=== PATIENT | male | born 1945 | race Caucasian/White ===

== ENCOUNTER 2016-06-21 18:09 | Inpatient (IN) | payer MEDICARE ==
[2016-06-21] MEDS ORDERED: ONDANSETRON HCL 4 MG/2 ML VIAL IV ONE (18:18)
[2016-06-21] MEDS ORDERED: NS 1,000 ML IV ONE (18:18)
--- NOTE | 2016-06-21 18:21 | EDPRACDOC ---
- History of Present Illness HPI: MD NOTE SEEN AND EXAMINED; COUGH AND SHOB; LUNGS CLEAR; PT HYPOXIC. CTA CHEST ADDED. CULTURES AND ABX STARTED. <Flex Cage - Last Filed: 06/21/16 19:44> - General Information Information Source: Patient, Family Mode Of Arrival: Car - History of Present Illness Onset: 4 DAYS HPI: PT STATES "RESPIRATORY INFECTION" X 4 DAYS, COMPLAINS OF NON-PROD COUGH, SOBR, "A LITTLE PAIN AROUND MY HEART", STATES TODAY BEGAN HAVING N/V, STATES VOMITED TNTC, UNABLE TO TOLERATE ANY PO INTAKE, NO FEVER OR CHILLS, NO DIARRHEA. Shortness of Breath: Moderate Relevant History: Reports: None Cough: Reports: Non-productive Rhinorrhea: Reports: Clear Ear Symptoms: Reports: None SOB Worsens with: Reports: Nothing SOB Improves with: Reports: Nothing Associated Signs and symptoms: Reports: Cough, Nasal Symptoms, Nausea, Vomiting , Myalgia <Hiro Oscar - Last Filed: 06/21/16 21:17> - General Information Chief Complaint: Dyspnea/Resp distress Stated Complaint: SHORT OF BREATH Time Seen by Provider: 06/21/16 18:15 Home Medications: Home Medications Omeprazole 20 mg PO DAILY 06/29/12 Tamsulosin HCl [Flomax] 0.4 mg PO QHS 06/29/12 Aspirin (Enteric Coated) [Ecotrin] 81 mg PO DAILY 11/13/15 Acetaminophen [Tylenol] 650 mg PO Q4-6H PRN 06/21/16 Guaifenesin [Mucinex] 600 mg PO BID PRN 06/21/16 Losartan/Hydrochlorothiazide [Losartan-Hctz 100-12.5 mg Tab] 1 tab PO DAILY 11/28 Allergies/Adverse Reactions: Allergies Allergy/AdvReac Type Severity Reaction Status Date / Time No Known Allergies Allergy Verified 11/13/15 15:19 ED Past Medical History - History Reviewed Yes Nurses notes reviewed and agree except as marked - Patient Medical History Cardiac History: Reports: Hypertension, Hypercholesterolemia GI/ History: Reports: Gastroesophageal Reflux 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 negative: Discharge Respiratory: Cough, Shortness of Breath. negative: Wheezing Cardiovascular: Chest Pain. negative: Palpitations Gastrointestinal: Nausea, Vomiting. negative: Diarrhea, Pain Genitourinary: negative: Dysuria, Frequency Neurological: negative: Dizziness, Headache, Numbness, Weakness Musculoskeletal: No Symptoms Reported Integumentary: No Symptoms Reported <Hiro Oscar - Last Filed: 06/21/16 21:17> - Physical Exam Last recorded Vital Signs: Last Vital Signs Temp 98.9 F 06/21/16 18:11 Pulse 77 06/21/16 19:31 Resp 24 06/21/16 19:31 BP 146/76 06/21/16 19:31 Pulse Ox 91 06/21/16 19:31 Oxygen Pulse Oxygen Saturation 91 O2 Device Room Air Oxygen Flow Rate Fraction of Inspired Oxygen ( FIO2) <Flex Cage - Last Filed: 06/21/16 19:44> - Physical Exam Constitutional: Alert (Awake), No apparent distress Oriented to: Time, Person, Place Last recorded Vital Signs: Last Vital Signs Temp 98.9 F 06/21/16 18:11 Pulse 83 06/21/16 18:11 Resp 20 06/21/16 18:11 BP 150/83 06/21/16 18:11 Pulse Ox 98 06/21/16 18:11 Oxygen Pulse Oxygen Saturation 98 O2 Device Room Air Oxygen Flow Rate Fraction of Inspired Oxygen ( FIO2) - HEENT Head: Normal ( normocephalic) Eye Exam: Normal (PERRL, EOMI, Sclera white) Oropharynx: Normal (Pharynx:Moist without exudate,Gums-no swelling) Tympanic Membrane: Normal ENT EAC: Normal TMJ: Normal Nose: No Symptoms Reported (septum midline) Neck: Normal (FROM, trachea at midline) - Respiratory/Cardiovascular Respiratory: Normal - CTA (BBS clear to auscultation without adventitious sounds ) Cardiovascular: Normal (RRR without murmur, gallop or rub) - GI Auscultation: Normal (NABS) Palpation: Normal (Soft,No rebound or guarding, non distended) Tenderness: Non tender Melendez's Sign: Negative - Musculoskeletal Back: Normal (Non-Tender) Extremities: Normal (Normal tone, Pulses 2+ No cyanosis or edema, FROM) - Integumentary Skin: Normal, Warm, Dry Lymphatics: Normal (no adenopathy) - Neurologic Memory Impaired: Normal Motor Function: Normal (Normal tone, Pulses 2+ No cyanosis or edema, FROM) Cranial Nerve: Normal (CN II-X11 intact sensation, strength 5/5) Cerebellar: Normal Mood Description: Normal Perception: Normal <Hiro Oscar - Last Filed: 06/21/16 21:17> ED SOB MDM - Results Result Diagrams: 06/21/16 18:45 06/21/16 18:45 Results: WBC 7.5 xk/uL (3.8-10.8) 06/21/16 18:45 RBC 5.49 xM/uL (4.70-6.10) 06/21/16 18:45 Hgb 16.3 g/dL (14.0-18.0) 06/21/16 18:45 Hct 47.4 % (42-52) 06/21/16 18:45 MCV 86 fL (80-94) 06/21/16 18:45 MCH 29.7 pg (27-32) 06/21/16 18:45 MCHC 34.4 g/dl (33-36) 06/21/16 18:45 RDW 12.8 % (11.5-14.5) 06/21/16 18:45 Plt Count 151 xk/uL (130-400) 06/21/16 18:45 MPV 9.8 fL (7.4-10.4) 06/21/16 18:45 Neut % (Auto) 81.2 % (45-76) H 06/21/16 18:45 Lymph % (Auto) 7.6 % (17-44) L 06/21/16 18:45 [place] % (Auto) 10.0 % (3-10) 06/21/16 18:45 Eos % (Auto) 0.3 % (0-5) 06/21/16 18:45 Baso % (Auto) 0.9 % (0-2) 06/21/16 18:45 Absolute Neuts (auto) 6.08 xk/uL (1.7-8.2) 06/21/16 18:45 Absolute Lymphs (auto) 0.53 xk/uL (0.65-4.75) L 06/21/16 18:45 PT 11.5 SEC (9.2-11.2) H 06/21/16 18:45 INR 1.1 06/21/16 18:45 APTT 25.9 SEC (22-35) 06/21/16 18:45 Puncture Site Left radial 06/21/16 19:30 pH 7.450 pH UNITS (7.35-7.45) 06/21/16 19:30 pCO2 39.0 mmHg (35-45) 06/21/16 19:30 pO2 55.0 mmHg (80-100) L 06/21/16 19:30 HCO3 27.1 MMOL/L (22-26) H 06/21/16 19:30 Total CO2 28.3 MMOL/L (23-27) H 06/21/16 19:30 Base Excess 3.0 (+/- 2) H 06/21/16 19:30 FiO2 % 21% 06/21/16 19:30 Specimen Drawn By Soteroham 06/21/16 19:30 Sodium 136 mEq/L (137-146) L 06/21/16 18:45 Potassium 3.6 mEq/L (3.5-5.1) 06/21/16 18:45 Chloride 99 mEq/L (98-107) 06/21/16 18:45 Carbon Dioxide 25 mMOL/L (22-33) 06/21/16 18:45 Anion Gap 16 mEq/L (8-16) 06/21/16 18:45 BUN 13 MG/DL (9-20) 06/21/16 18:45 Creatinine 0.90 MG/DL (0.66-1.25) 06/21/16 18:45 Estimated GFR (MDRD) > 60 mL/min (>=60) 06/21/16 18:45 Glucose 113 mg/dL (70-99) H 06/21/16 18:45 Calculated Osmolality 263 MOs/Kg (270-290) L 06/21/16 18:45 Calcium 9.5 MG/DL (8.4-10.2) 06/21/16 18:45 Total Bilirubin 0.9 MG/DL (0.2-1.3) 06/21/16 18:45 AST 19 IU/L (17-59) 06/21/16 18:45 ALT 29 IU/L (21-72) 06/21/16 18:45 Alkaline Phosphatase 90 IU/L (50-160) 06/21/16 18:45 Troponin I < 0.01 ng/mL (<.04) 06/21/16 18:45 Total Protein 7.3 G/DL (6.3-8.2) 06/21/16 18:45 Albumin 4.3 G/DL (3.5-5.0) 06/21/16 18:45 Lipase 39 U/L (23-300) 06/21/16 18:45 Lab Results 06/21/16 06/21/16 06/21/16 19:30 18:45 18:45 WBC 7.5 RBC 5.49 Hgb 16.3 Hct 47.4 MCV 86 MCH 29.7 MCHC 34.4 RDW 12.8 Plt Count 151 MPV 9.8 Neut % (Auto) 81.2 H Lymph % (Auto) 7.6 L [place] % (Auto) 10.0 Eos % (Auto) 0.3 Baso % (Auto) 0.9 Absolute Neuts (auto) 6.08 Absolute Lymphs (auto) 0.53 L PT 11.5 H INR 1.1 APTT 25.9 Puncture Site Left radial pH 7.450 pCO2 39.0 pO2 55.0 L HCO3 27.1 H Total CO2 28.3 H Base Excess 3.0 H FiO2 % 21% Specimen Drawn By Alhham Sodium Potassium Chloride Carbon Dioxide Anion Gap BUN Creatinine Estimated GFR (MDRD) Glucose Calculated Osmolality Calcium Total Bilirubin AST ALT Alkaline Phosphatase Troponin I Total Protein Albumin Lipase 06/21/16 18:45 WBC RBC Hgb Hct MCV MCH MCHC RDW Plt Count MPV Neut % (Auto) Lymph % (Auto) [place] % (Auto) Eos % (Auto) Baso % (Auto) Absolute Neuts (auto) Absolute Lymphs (auto) PT INR APTT Puncture Site pH pCO2 pO2 HCO3 Total CO2 Base Excess FiO2 % Specimen Drawn By Sodium 136 L Potassium 3.6 Chloride 99 Carbon Dioxide 25 Anion Gap 16 BUN 13 Creatinine 0.90 Estimated GFR (MDRD) > 60 Glucose 113 H Calculated Osmolality 263 L Calcium 9.5 Total Bilirubin 0.9 AST 19 ALT 29 Alkaline Phosphatase 90 Troponin I < 0.01 Total Protein 7.3 Albumin 4.3 Lipase 39 <Flex Cage - Last Filed: 06/21/16 19:44> - Differential Diagnosis Differential Diagnosis: Heart Failure, Pulmonary Embolus, Pnuemonia, Pneumothorax - Re-evaluation Re-evaluation 1 Re-evaluation Time: 19:16 (FEELS BETTER, NAUSEA RESOLVED, STATES PAIN IN HIS CHEST IS "CONGESTION", STATES HAS BEEN OFF/ON FOR SEVERAL DAYS, LAST STRESS TEST "YEARS AGO") Re-evaluation 2 Re-evaluation Time: 21:09 (FEELS BETTER) - Results Result Diagrams: 06/21/16 18:45 06/21/16 18:45 - EKG EKG #1 EKG Time: 18:23 -: Yes EKG interpreted by me Rate: bpm: 74 [place]: Normal Rhythm: NSR Block: None Hypertrophy: None ST: Nonsp Comparison: 11/13/15 (NEW T-WAVE INVERSION I AND AVL) - Diagnostic Imaging CXR Image interpreted by: Radiologist Diagnostic Imaging Comments: PORTABLE CHEST 1 VIEW COMPARISON: November 13, 2015 FINDINGS: There is no edema or consolidation. The heart size and pulmonary vascularity are normal. No adenopathy. No bone lesions. No pneumothorax. IMPRESSION: No edema or consolidation CTA CHEST Image interpreted by: Radiologist Diagnostic Imaging Comments: CT ANGIOGRAPHY CHEST WITH CONTRAST TECHNIQUE: Multidetector CT imaging of the chest was performed using the standard protocol during bolus administration of intravenous contrast. Multiplanar CT image reconstructions and MIPs were obtained to evaluate the vascular anatomy. CONTRAST: Isovue 370, 80 mL. COMPARISON: Chest radiograph earlier today. FINDINGS: The quality of the study is fair. There is respiratory motion. Mediastinum: No filling defects are noted within the pulmonary arterial tree to suggest pulmonary emboli. Heart size is normal. No pericardial fluid, thickening or calcification. No acute abnormality of the thoracic aorta or other great vessels of the mediastinum. Azygos vein. No pathologically enlarged mediastinal or hilar lymph nodes. The esophagus is normal in appearance. Lungs/Pleura: No consolidative airspace disease. No pleural effusions. No suspicious appearing pulmonary nodules or masses. Large bulla is seen along the LEFT heart border. Upper Abdomen: Visualized portions of the upper abdomen are unremarkable. Musculoskeletal: No aggressive appearing lytic or blastic lesions are noted in the visualized portions of the skeleton. Review of the MIP images confirms the above findings. IMPRESSION: Respiratory degradation. Overall fair quality study. No large central pulmonary emboli are observed. No acute consolidative airspace disease. - Additional Information Additional Information: DISCUSSED WITH DR CAGE, WILL DISCUSS WITH THE HOSPITALIST <Hiro Oscar - Last Filed: 06/21/16 21:17> <Flex Cage - Last Filed: 06/21/16 19:44> - Departure Disposition: Admit IP To This Hospital Decision to Admit Time: 21:14 Decision to admit date: 06/21/16 Decision to admit: from ED - Physician Consulted Hospitalist Time Called: 21:14 Provider Called: Ravindra Ryan Time Player Piano Technician Returned Call: 21:16 (WILL SEE IN ED) <Hiro Oscar - Last Filed: 06/21/16 21:17> - Departure Final Diagnosis: Acute bronchopneumonia, Hypoxia Chest pain Qualifiers: Chest pain type: unspecified Qualified Code(s): R07.9 - Chest pain, unspecified Instructions: Chest Pain (ED), Chest Wall Pain (ED) Referrals: None,No Provider [NonStaff] - One Week Prescriptions: No Action Tamsulosin HCl [Flomax] 0.4 mg PO QHS Omeprazole 20 mg PO DAILY Aspirin (Enteric Coated) [Ecotrin] 81 mg PO DAILY Guaifenesin [Mucinex] 600 mg PO BID PRN PRN Reason: Congestion Losartan/Hydrochlorothiazide [Losartan-Hctz 100-12.5 mg Tab] 1 tab PO DAILY Acetaminophen [Tylenol] 650 mg PO Q4-6H PRN PRN Reason: Pain
[2016-06-21 19:01] LABS: AUTOMATED BASOPHIL 0.9 % (0-2); AUTOMATED EOSINOPHIL 0.3 % (0-5); AUTOMATED LYMPH 7.6 % (17-44); AUTOMATED NEUTROPHIL 81.2 % (45-76); MPV 9.8 fL (7.4-10.4)
[2016-06-21 19:10] LABS: BLOOD UREA NITROGEN 13 MG/DL (9-20); CALCIUM 9.5 MG/DL (8.4-10.2); CALCULATED OSMOLALITY 263 MOs/Kg (270-290); CHLORIDE 99 mEq/L (98-107); GLUCOSE 113 mg/dL (70-99); PARTIAL THROMB. TIME 25.9 SEC (22-35); PT-INR 1.1; SODIUM LEVEL 136 mEq/L (137-146); TOTAL PROTEIN 7.3 G/DL (6.3-8.2)
--- NOTE | 2016-06-21 19:10 | DIRPT ---
CLINICAL DATA: Shortness of breath and chest pain EXAM: PORTABLE CHEST 1 VIEW COMPARISON: November 13, 2015 FINDINGS: There is no edema or consolidation. The heart size and pulmonary vascularity are normal. No adenopathy. No bone lesions. No pneumothorax. IMPRESSION: No edema or consolidation Electronically Signed By: Hector Bartholomew III, M.D. On: 06/21/2016 19:08
[2016-06-21 19:37] LABS: ALLEN'S TEST PASS; TCO2 28.3 MMOL/L (23-27)
[2016-06-21 19:39] LABS: ABG Draw Site Left Radial
[2016-06-21] MEDS ORDERED: CEFTRIAXONE 2 GM in D5W 100 ML IV ONE (19:43)
[2016-06-21] MEDS ORDERED: AZITHROMYCIN 500 MG in D5W 250 ML IV ONE (19:43)
[2016-06-21 19:45] LABS: LEUKOCYTES/URINE NEG (NEGATIVE); NITRITE/URINE NEG (NEGATIVE); URINE OCCULT BLOOD 1+ (NEG/TRACE); WBC/URINE 0-2 (0-2)
[2016-06-21] MEDS ORDERED: Pharmacy Review for Metformin - IV Contrast Given SCH (20:00)
--- NOTE | 2016-06-21 21:01 | DIRPT ---
CLINICAL DATA: Shortness of breath, cough and sneezing for 4 days. EXAM: CT ANGIOGRAPHY CHEST WITH CONTRAST TECHNIQUE: Multidetector CT imaging of the chest was performed using the standard protocol during bolus administration of intravenous contrast. Multiplanar CT image reconstructions and MIPs were obtained to evaluate the vascular anatomy. CONTRAST: Isovue 370, 80 mL. COMPARISON: Chest radiograph earlier today. FINDINGS: The quality of the study is fair. There is respiratory motion. Mediastinum: No filling defects are noted within the pulmonary arterial tree to suggest pulmonary emboli. Heart size is normal. No pericardial fluid, thickening or calcification. No acute abnormality of the thoracic aorta or other great vessels of the mediastinum. Azygos vein. No pathologically enlarged mediastinal or hilar lymph nodes. The esophagus is normal in appearance. Lungs/Pleura: No consolidative airspace disease. No pleural effusions. No suspicious appearing pulmonary nodules or masses. Large bulla is seen along the LEFT heart border. Upper Abdomen: Visualized portions of the upper abdomen are unremarkable. Musculoskeletal: No aggressive appearing lytic or blastic lesions are noted in the visualized portions of the skeleton. Review of the MIP images confirms the above findings. IMPRESSION: Respiratory degradation. Overall fair quality study. No large central pulmonary emboli are observed. No acute consolidative airspace disease. Electronically Signed By: Vin Ellis M.D. On: 06/21/2016 20:58
[2016-06-21] MEDS ORDERED: ACETAMINOPHEN 325 MG/TAB TABLET PO PRN (21:18)
[2016-06-21] MEDS ORDERED: BISACODYL 10 MG SUPP PR PRN (21:18)
[2016-06-21] MEDS ORDERED: SENNA CONCENTRATE TAB PO PRN (21:18)
[2016-06-21] MEDS ORDERED: TUSSIONEX 5 ML ORAL SYRINGE PO PRN (21:18)
[2016-06-21] MEDS ORDERED: PROMETHAZINE 25 MG/ML VIAL IV PRN (21:18)
[2016-06-21] MEDS ORDERED: BENZONATATE 100 MG PERLES PO PRN (21:18)
[2016-06-21] MEDS ORDERED: OXYCODONE HCL 5 MG TABLET PO PRN (21:18)
[2016-06-21] MEDS ORDERED: ACETAMINOPHEN 325 MG SUPP PR PRN (21:18)
[2016-06-21] MEDS ORDERED: METOCLOPRAMIDE 10 MG/2 ML VIAL IV PRN (21:23)
--- NOTE | 2016-06-21 21:25 | HISTPHYS ---
- Chief Complaint Ill for 3 days worsening cough short of breath - History of Present Illness Patient very pleasant 71-year-old white male non-smoker who comes in the emergency room today complaining of increased shortness breath nonproductive cough over the past 2 weeks significantly worse over the past 3 days and became diaphoretic today with worsening headache coughing up clear material. He also complains of nausea vomiting unable to eat today. 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) Systemic History: Denies: Cancer Neurological History: Reports: No Significant History Psychological History: Reports: No Significant History - Medictions/Allergies Allergies No Known Allergies Allergy (Verified 11/13/15 15:19) Current Medication List: Reviewed Home Medications Omeprazole 20 mg PO DAILY 06/29/12 Tamsulosin HCl [Flomax] 0.4 mg PO QHS 06/29/12 Aspirin (Enteric Coated) [Ecotrin] 81 mg PO DAILY 11/13/15 Acetaminophen [Tylenol] 650 mg PO Q4-6H PRN 06/21/16 Guaifenesin [Mucinex] 600 mg PO BID PRN 06/21/16 Losartan/Hydrochlorothiazide [Losartan-Hctz 100-12.5 mg Tab] 1 tab PO DAILY 11/28 - Family History Reports: Hypertension, Stroke (Father with cerebral hemorrhage age 65), Cardiac Disorders (Mom with PR age 7) - Social History Lives: with Spouse Smoking Status: Never smoker Social History: Denies: Alcohol Use, Other Substance Use - Review of Systems Constitutional: No Symptoms Reported (No Fever, chills, wt loss/gain, diaphoresis,fatigue/malaise.) Eyes: No Symptoms Reported (No blurry vision, visual changes, eye pain, or eye redness.) Ears: No Symptoms Reported (No ear pain or discharge) Nose: No Symptoms Reported (No nasal discharge/congestion or bleeding) Mouth: No Symptoms Reported (No oropharyngeal lesions or erythema) Throat/Neck: No Symptoms Reported (No throat pain or swelling.No oropharyngeal lesions or erythema.) Respiratory: Cough, Shortness of Breath. negative: Sputum Cardiovascular: No Symptoms Reported (No chest pain or palpitations.) Gastrointestinal: Heartburn Genitourinary: Benign prostatic hyperplasia (BPH) Neurological: Other Musculoskeletal:: No Symptoms Reported Integumentary: No Symptoms Reported (no rashes or lesions) Allergic/Immunologic: No Symptoms Reported (no rashes or lesions) Hematologic: No Symptoms Reported (No chronic anemia, bleeding, or easy bruising.), Other (Lymphatics- no lymph node swelling or pain.) Endocrine: No Symptoms Reported (No thyroid issues, polyuria, or polydipsia.) Psychiatric: No Symptoms Reported (Fully oriented, with normal and appropriate affect.) - Physical Exam Vital Signs: Initial Vitals Temperature 98.9 F 06/21/16 18:11 Pulse Rate 83 06/21/16 18:11 Respiratory Rate 20 06/21/16 18:11 Blood Pressure 150/83 06/21/16 18:11 Pulse Oxygen Saturation 98 06/21/16 18:11 Constitutional: Alert (Awake, Fully oriented. Normal and appropriate affect.Well appearing. Well nourished.), No apparent distress Oriented to: Time, Person, Place - HEENT Head: Normal (normocephalic, atraumatic.), Other (No cervical lymphadenopathy. No supraclavicular lymphadenopathy. Neck: No palpable mass, supple , trachea midline.) Eye: Normal (pupils equal, reactive to light, and round; EOMI, Sclera white) Oropharynx: Normal (Pharynx: Moist without exudate,Gums-no swelling, No oropharyngeal lesions or erythema, Mucous membranes are dry.) ENT EAC: Normal (No oropharyngeal lesions or erythema. Mucous membranes are dry. ) TMJ: Normal Nose: No Symptoms Reported (septum midline, Nares patent, without discharge or bleeding.) Respiratory: Diminished, Rhonchi (With cough), Wheezes. negative: Rales Cardiovascular: Normal (RRR , Normal S1, S2. No murmurs, rubs, or gallops. PMI non-displaced. Carotids: no carotid bruits. No bradycardia or tachycardia. DP pulses 2+ bilaterally.) - GI Auscultation: Normal (normal active sounds) Palpation: Normal (Soft,non distended,nontender. No hepatosplenomegaly.) Tenderness: Non tender (No rebound or guarding) Melendez's Sign: Negative - Musculoskeletal Back: Normal (Non-Tender) Extremities: Normal (Normal tone, DP pulses 2+ bilaterally, No cyanosis or edema bilaterally, FROM bilaterally.) Spine: non-tender, limited range of motion - Integumentary Skin: Normal (Clean, dry, and intact. No rashes. No lesions.) Lymphatics: Normal (No cervical lymphadenopathy. No supraclavicular lymphadenopathy.) - Neurologic Memory Impaired: Normal Motor Function: Normal (Motor 5/5 throughout.Normal tone, Pulses 2+ No cyanosis or edema, FROM) Cranial Nerve: Normal (CN II-XII intact sensation, strength 5/5) Cerebellar: Normal. negative: Ataxia, Past-Pointing, Tremor Mood Description: Normal (Fully oriented. Normal and appropriate affect.) Thought: Coherent Perception: Normal (Normal and appropriate affect.) - Focused CV Perfusion Exam Vital Signs: Last Vital Signs Temp 98.9 F 06/21/16 18:11 Pulse 77 06/21/16 19:31 Resp 24 06/21/16 19:31 BP 146/76 06/21/16 19:31 Pulse Ox 91 06/21/16 19:31 - Lab Results 06/21/16 18:45 06/21/16 18:45 Laboratory Results - last 24 hr 06/21/16 06/21/16 06/21/16 18:45 18:45 18:45 WBC 7.5 RBC 5.49 Hgb 16.3 Hct 47.4 MCV 86 MCH 29.7 MCHC 34.4 RDW 12.8 Plt Count 151 MPV 9.8 Neut % (Auto) 81.2 H Lymph % (Auto) 7.6 L [place] % (Auto) 10.0 Eos % (Auto) 0.3 Baso % (Auto) 0.9 Absolute Neuts (auto) 6.08 Absolute Lymphs (auto) 0.53 L PT 11.5 H INR 1.1 APTT 25.9 Puncture Site pH pCO2 pO2 HCO3 Total CO2 Base Excess FiO2 % Specimen Drawn By Sodium 136 L Potassium 3.6 Chloride 99 Carbon Dioxide 25 Anion Gap 16 BUN 13 Creatinine 0.90 Estimated GFR (MDRD) > 60 Glucose 113 H Calculated Osmolality 263 L Lactic Acid Calcium 9.5 Total Bilirubin 0.9 AST 19 ALT 29 Alkaline Phosphatase 90 Troponin I < 0.01 Total Protein 7.3 Albumin 4.3 Lipase 39 TSH Urine Color Urine Clarity Urine pH Ur Specific [place] Urine Protein Urine Glucose (UA) Urine Ketones Urine Occult Blood Urine Nitrite Urine Bilirubin Urine Urobilinogen Ur Leukocyte Esterase Urine RBC Urine WBC Urine Mucus 06/21/16 06/21/16 06/21/16 19:30 19:30 21:25 WBC RBC Hgb Hct MCV MCH MCHC RDW Plt Count MPV Neut % (Auto) Lymph % (Auto) [place] % (Auto) Eos % (Auto) Baso % (Auto) Absolute Neuts (auto) Absolute Lymphs (auto) PT INR APTT Puncture Site Left radial pH 7.450 pCO2 39.0 pO2 55.0 L HCO3 27.1 H Total CO2 28.3 H Base Excess 3.0 H FiO2 % 21% Specimen Drawn By [place] Sodium Potassium Chloride Carbon Dioxide Anion Gap BUN Creatinine Estimated GFR (MDRD) Glucose Calculated Osmolality Lactic Acid Calcium Total Bilirubin AST ALT Alkaline Phosphatase Troponin I < 0.01 Total Protein Albumin Lipase TSH 0.51 Urine Color Yellow Urine Clarity Clear Urine pH 6.0 Ur Specific [place] 1.015 Urine Protein Neg Urine Glucose (UA) Neg Urine Ketones 2+ H Urine Occult Blood 1+ H Urine Nitrite Neg Urine Bilirubin Neg Urine Urobilinogen <2.0 Ur Leukocyte Esterase Neg Urine RBC 5-10 H Urine WBC 0-2 Urine Mucus Occ 06/21/16 06/21/16 21:25 21:25 WBC RBC Hgb Hct MCV MCH MCHC RDW Plt Count MPV Neut % (Auto) Lymph % (Auto) [place] % (Auto) Eos % (Auto) Baso % (Auto) Absolute Neuts (auto) Absolute Lymphs (auto) PT INR APTT Puncture Site pH pCO2 pO2 HCO3 Total CO2 Base Excess FiO2 % Specimen Drawn By Sodium Potassium Chloride Carbon Dioxide Anion Gap BUN Creatinine Estimated GFR (MDRD) Glucose Calculated Osmolality Lactic Acid 1.2 Calcium Total Bilirubin AST ALT Alkaline Phosphatase Troponin I Total Protein Albumin Lipase TSH Cancelled Urine Color Urine Clarity Urine pH Ur Specific [place] Urine Protein Urine Glucose (UA) Urine Ketones Urine Occult Blood Urine Nitrite Urine Bilirubin Urine Urobilinogen Ur Leukocyte Esterase Urine RBC Urine WBC Urine Mucus - Diagnostic Findings Chest x-ray and CT of the chest failed to show any evidence of infiltrate or CHF. - Assessment (1) Acute bronchopneumonia J18.0 - BRONCHOPNEUMONIA, UNSPECIFIED ORGANISM Acute Present on Admission: Yes Rocephin Zithromax ordered in addition to nebulizer therapy and steroids for asthmatic component. (2) Hypoxia R09.02 - HYPOXEMIA Acute Present on Admission: Yes Supplemental O2 ordered. (3) BPH (benign prostatic hyperplasia) N40.0 - BENIGN PROSTATIC HYPERPLASIA WITHOUT LOWER URINRY TRACT SYMP Acute Present on Admission: Yes Qualifiers: Prostatic enlargement morphology: unspecified morphology Lower urinary tract symptom presence: symptoms present Qualified Code(s): N40.1 - Benign prostatic hyperplasia with lower urinary tract symptoms (4) Hypertension I10 - ESSENTIAL (PRIMARY) HYPERTENSION Acute Present on Admission: Yes Qualifiers: Hypertension type: essential hypertension Qualified Code(s): I10 - Essential (primary) hypertension Continue previous therapy. (5) Chest pain R07.9 - CHEST PAIN, UNSPECIFIED Acute Present on Admission: Yes Qualifiers: Chest pain type: unspecified Qualified Code(s): R07.9 - Chest pain, unspecified Associated with his bronchopneumonia. Analgesics ordered. Case Care Discussed with: Patient, Nursing Staff Total Time: Time spent process 48 minutes Critical Care: No Code: [id number]
[2016-06-21 22:50] LABS: hTSH 0.51 uIU/mL (0.5-4.67)
[2016-06-21 23:35] VITALS: BMI 27.6
[2016-06-22] MEDS ORDERED: ENOXAPARIN 40 MG/0.4 ML PFS SQ SCH
[2016-06-22] MEDS: PROBIOTIC BLEND TAB PO SCH ×2 (00:14→11:51)
[2016-06-22] MEDS ORDERED: ACETAMINOPHEN 325 MG/TAB TABLET PO PRN (00:34)
[2016-06-22] MEDS ORDERED: GUAIFENESIN 600 MG LA TAB PO PRN (00:34)
[2016-06-22] MEDS: METHYLPREDNISOLONE 40 MG/1 ML VIAL IV SCH ×2 (01:05→08:21)
[2016-06-22] MEDS: ALBUTEROL 0.083% 3 ML NEB NEB SCH ×2 (02:38→08:31)
[2016-06-22 05:26] LABS: ALLEN'S TEST PASS; BEb 1.6 (+/- 2); TCO2 25.6 MMOL/L (23-27)
[2016-06-22 05:27] LABS: ABG Draw Site Right Radial
[2016-06-22] MEDS ORDERED: PANTOPRAZOLE 40 MG TAB PO SCH (06:00)
[2016-06-22 06:24] LABS: AUTOMATED BASOPHIL 0.4 % (0-2); AUTOMATED LYMPH 8.2 % (17-44); AUTOMATED NEUTROPHIL 87.4 % (45-76); MPV 10.1 fL (7.4-10.4)
[2016-06-22 06:35] LABS: BLOOD UREA NITROGEN 12 MG/DL (9-20); CALCIUM 8.9 MG/DL (8.4-10.2); CALCULATED OSMOLALITY 266 MOs/Kg (270-290); CHLORIDE 99 mEq/L (98-107); GLUCOSE 131 mg/dL (70-99); SODIUM LEVEL 137 mEq/L (137-146)
[2016-06-22 07:30] VITALS: TEMP 98.3
[2016-06-22] MEDS: LOSARTAN KCL/HCTZ 50-12.5 TAB PO SCH (08:21)
[2016-06-22] MEDS ORDERED: Non-Formulary Medication ITEM (Omeprazole [Omeprazole] 20 MG) PO SCH (09:00)
[2016-06-22] MEDS ORDERED: [UNRECOGNIZED DRUG - OTHER] PO SCH (09:00)
[2016-06-22] MEDS ORDERED: HYDROCHLOROTHIAZIDE PO SCH (09:00)
[2016-06-22] MEDS ORDERED: LOSARTAN POTASSIUM 50 MG TAB PO SCH (09:00)
[2016-06-22] MEDS ORDERED: LOSARTAN PO SCH (09:00)
[2016-06-22 10:22] VITALS: BP 139/76
[2016-06-22 12:05] VITALS: PULSE 104
--- NOTE | 2016-06-22 12:40 | PCM.DCS92 ---
- Final/Secondary Discharge Diagnosis (1) Acute bronchopneumonia Acute J18.0 - BRONCHOPNEUMONIA, UNSPECIFIED ORGANISM Present on Admission: Yes Comment: Markedly better today. Stable for discharge home (2) BPH (benign prostatic hyperplasia) Acute N40.0 - BENIGN PROSTATIC HYPERPLASIA WITHOUT LOWER URINRY TRACT SYMP Present on Admission: Yes unspecified morphology symptoms present N40.1 - Benign prostatic hyperplasia with lower urinary tract symptoms Comment: Stable continue home medications (3) Chest pain Acute R07.9 - CHEST PAIN, UNSPECIFIED Present on Admission: Yes unspecified R07.9 - Chest pain, unspecified Comment: Associated with his bronchopneumonia. Analgesics ordered. (4) Hypertension Acute I10 - ESSENTIAL (PRIMARY) HYPERTENSION Present on Admission: Yes essential hypertension I10 - Essential (primary) hypertension Comment: Continue previous therapy. (5) Hypoxia Acute R09.02 - HYPOXEMIA Present on Admission: Yes Comment: Much improved. Ambulating on room air with sats in the mid 90s Discharge Disposition: Home Discharge Condition: Improved Cognitive Discharge Status: Unimpaired Fuctional Discharge Status: Independent Physician Follow up/Referrals: Mary Gonzalez NP [Primary Care Provider] - 06/28/16 1:30 pm Home Medications / New Prescriptions: New Azithromycin [Zithromax] 500 mg PO DAILY #5 tablet Cefdinir [Omnicef] 300 mg PO BID #14 capsule Continue Tamsulosin HCl [Flomax] 0.4 mg PO QHS Omeprazole 20 mg PO DAILY Aspirin (Enteric Coated) [Halfprin] 81 mg PO DAILY Guaifenesin [Mucinex] 600 mg PO BID PRN PRN Reason: Congestion Losartan/Hydrochlorothiazide [Losartan-Hctz 100-12.5 mg Tab] 1 tab PO DAILY Acetaminophen [Tylenol] 650 mg PO Q4-6H PRN PRN Reason: Pain O2 Device: Room Air Diet at Discharge: As Tolerated Activity: As Tolerated Call Office For: Worsening Symptoms - DC Summary Notes Hospital Course Note:: Discharge summary on patient named KRISTA QUILES admitted to [facility] on 06/21/16 by Ravindra Ryan MD. Date of discharge is []. Mr. Quiles is a pleasant 71-year-old white male with history of hypertension and hyperlipidemia who presented to the emergency room with complaint of 2 weeks of increasing cough and congestion that became acutely worse yesterday. He was wheezing and coughing up clear material. He denied chest pain, fevers or chills. He is found to be significantly hypoxic with a PO2 in the mid 50s. Because of his symptoms and respiratory distress he was admitted to the hospital. He was started on IV antibiotics and nebulizer treatments. Within 12 hours he was feeling significantly better. He was weaned off oxygen and repeat ABG showed a PO2 in the 80s. I offered him continued monitoring overnight or discharge home. We decided to see how he would do ambulating in the halls. For most of the day he has been ambulating in the halls on room air with no significant distress. He states he feels well and prefers to continue treatment as an outpatient. We will continue him on antibiotics and he is to follow up with his primary physician in the next several days. He is to call or return with any problems Total Time: 45 minutes - Physical Exam Vital Signs: Last Vital Signs Temp 98.3 F 06/22/16 10:21 Pulse 104 06/22/16 12:04 Resp 18 06/22/16 12:04 BP 139/76 06/22/16 10:21 Pulse Ox 94 06/22/16 12:04 Oxygen Pulse Oxygen Saturation 94 O2 Device Room Air Oxygen Flow Rate 2 Fraction of Inspired Oxygen ( FIO2) Constitutional: No apparent distress, Alert (Awake, Fully oriented. Normal and appropriate affect.Well appearing. Well nourished.), Well nourished, Well appearing Oriented to: Time, Person, Place - HEENT Head: Normal (normocephalic, atraumatic.), Other (No cervical lymphadenopathy. No supraclavicular lymphadenopathy. Neck: No palpable mass, supple , trachea midline.) Eye: Normal (pupils equal, reactive to light, and round; EOMI, Sclera white) Oropharynx: Normal (Pharynx: Moist without exudate,Gums-no swelling, No oropharyngeal lesions or erythema, Mucous membranes are dry.) ENT EAC: Normal (No oropharyngeal lesions or erythema. Mucous membranes are dry. ) TMJ: Normal Nose: No Symptoms Reported (septum midline, Nares patent, without discharge or bleeding.) - Respiratory/Cardiovascular Respiratory: Normal - CTA, Diminished. negative: Rales Cardiovascular: Normal (RRR , Normal S1, S2. No murmurs, rubs, or gallops. PMI non-displaced. Carotids: no carotid bruits. No bradycardia or tachycardia. DP pulses 2+ bilaterally.) - GI Auscultation: Normal (normal active sounds) Palpation: Normal (Soft,non distended,nontender. No hepatosplenomegaly.) Tenderness: Non tender (No rebound or guarding) Melendez's Sign: Negative - Musculoskeletal Back: Normal (Non-Tender) Extremities: Normal (Normal tone, DP pulses 2+ bilaterally, No cyanosis or edema bilaterally, FROM bilaterally.) - Integumentary Skin: Normal (Clean, dry, and intact. No rashes. No lesions.) Lymphatics: Normal (No cervical lymphadenopathy. No supraclavicular lymphadenopathy.) - Neurologic Memory Impaired: Normal Motor Function: Normal Cranial Nerve: Normal Cerebellar: Normal. negative: Ataxia, Past-Pointing, Tremor Mood Description: Normal (Fully oriented. Normal and appropriate affect.) Thought: Coherent Perception: Normal (Normal and appropriate affect.)
[2016-06-22] MEDS ORDERED: Vaccine Screening Complete SCH (13:00)
[2016-06-22] MEDS ORDERED: CEFTRIAXONE 1 GM in D5W 100 ML IV SCH (21:00)
[2016-06-22] MEDS ORDERED: TAMSULOSIN HCL 0.4 MG CAP PO SCH (21:00)
[2016-06-22] MEDS ORDERED: AZITHROMYCIN 500 MG in D5W 250 ML IV SCH (22:00)
[2016-06-23] MEDS ORDERED: PNEUMOCOCCAL 0.5 ML VIAL IM ONE (08:00)
== END 2016-06-22 13:45 | disposition home or self-care (01) | DRG 194 ==
LOC: ED 18:09 → MPS3 21:18
PROVIDERS: ADMIT Internal Medicine; ATTEND Hospitalist
PROC: 4A033R1 Measurement of Arterial Saturation, Peripheral, Percutaneous Approach (ICD-10-PCS; principal; 2016-06-21)
DX: J18.0 Bronchopneumonia, unspecified organism (principal); E87.0 Hyperosmolality and hypernatremia; N40.1 Benign prostatic hyperplasia with lower urinary tract symptoms; I10 Essential (primary) hypertension; R09.02 Hypoxemia; Z28.21 Immunization not carried out because of patient refusal; Z57.5 Occupational exposure to toxic agents in other industries; Z79.82 Long term (current) use of aspirin
CPT/HCPCS: 36415; 36600; 71010; 71275; 80048; 80053; 81001; 82803; 83605; 83690; 84443; 84484; 85025; 85610; 85730; 87040; 87086; 93005; 94640; 96361; 96365; 96372; 96375; 98960; 99284; A9698; G0237; J0456; J0696; J1650; J2405; J2920; J3490; J7060; J7070